=== PATIENT | male | born 1990 | race Two or more races ===

== ENCOUNTER 2020-07-26 15:30 | Outpatient (CLI) | payer OTHER | END 2020-07-26 16:20 | disposition home or self-care (01) | LOC: OFIC 805 15:30 | PROVIDERS: ATTEND Otolaryngology | DX: R09.81 Nasal congestion (principal); J30.89 Other allergic rhinitis ==

== ENCOUNTER 2025-01-19 12:01 | Emergency (ER) | payer OTHER ==
[~2025-01-19] VITALS: Ht 185.4 cm; Wt 98.0 kg
[2025-01-19] MEDS ORDERED: KETOROLAC TROMETHAMINE 60 MG VIAL IM STA (12:55)
[2025-01-19] MEDS ORDERED: KETOROLAC TROMETHAMINE 60 MG VIAL IM ONE (14:02)
== END 2025-01-19 15:50 | disposition home or self-care (01) ==
LOC: ER 12:10
DX: S00.83XA Contusion of other part of head, initial encounter (principal); S20.219A Contusion of unspecified front wall of thorax, initial encounter; X58.XXXA Exposure to other specified factors, initial encounter; Y93.89 Activity, other specified; Y92.89 Other specified places as the place of occurrence of the external cause; Y99.8 Other external cause status